=== PATIENT | male | born 1980 | race Asian ===

== ENCOUNTER → 2018-06-19 | Outpatient (CLI) | payer OTHER ==
--- NOTE | 2018-06-19 20:11 | CPEEG ---
4-HOUR VIDEO EEG DATE OF STUDY: 06/19/2018 INTERPRETATION: This 4-hour video EEG recording is essentially normal. There were no potentially ep ileptogenic abnormalities present in the awake or sleep recordings. The patient did not have any cli nical events during the video EEG monitoring session. REPORT: This 4-hour video EEG contains 10 Hz alpha activity to the posterior head regions. There wa s no abnormal activation at rest, during photic stimulation, or hyperventilation. The patient became drowsy and fell asleep during the study. There was no abnormal activation during drowsiness, sleep, or during times of arousal. The patient did not have any clinical events during the video EEG monitoring session. This study had significant artifact throughout the recording. This included movement, myogenic, elec trode, and 60-cycle artifact intermittently. /[id number]/MODL
== END ==
LOC: FCPNEURO 10:22
PROVIDERS: ATTEND Psychiatry & Neurology Neurology
DX: R56.9 Unspecified convulsions (principal)